=== PATIENT | male | born 1960 | race Caucasian/White ===

== ENCOUNTER 2020-05-19 14:14 | Inpatient (IN) | payer MEDICARE, OTHER ==
[~2020-05-19] VITALS: Ht 177.8 cm; Wt 68.0 kg
[2020-05-19 19:55] VITALS: BP 102/72
--- NOTE | 2020-05-19 19:55 | NUR ---
GPS RN-ADMISSION NOTES: ADMITTED A 59-YR OLD MALE, FROM [facility], ADMITTED ON 5150 FOR GD. PER HOLD, PT PRESENTS DISORIENTED WITH DEPRESSED MOOD AND RESTRICTED AFFECT. PT STATED "HE HAS NOT BEEN SLEEPING FOR 2 NIGHTS. PT. UNABLE TO TAKE HIS MEDICATION AND A RESULT ACCESS BASIC NEED DUE TO MENTAL HEALTH DISORDER. UPON FACE TO FACE ASSESSMENT, PATIENT IS A/OX1-2, DEPRESSED MOOD, DISORGANIZED, CONFUSED, COOPERATIVE. PT WAS ADVISED OF HIS HOLD. PT'S RIGHTS HANDBOOK AND A GUIDE TO PRESCRIPTION MEDICATIONS GIVEN. IN NO APPARENT DISTRESS NOTED. BELONGINGS WERE INVENTORIED AND CHECKED FOR CONTRABAND. PT. IS UNDER THE PSYCHIATRIC CARE OF DR. RODRIGUEZ ORDERS OBTAINED, AND UNDER THE MEDICAL CARE OF ROLANDA ALEXANDER. PT. REFUSED FLU VACCINE WHEN OFFERED. SKIN BODY ASSESSMENT DONE. WOUND CARE CONSULT TRIGGERED. DENIES PAIN/DISCOMFORT AT THIS TIME. SAFETY PRECAUTIONS IN PLACE. BED LOCKED AND IN LOWEST POSITION. SIDE RAILS UP X2. WILL CONTINUE TO MONITOR Q15 MINS ROUNDS FOR SAFETY AND BEHAVIOR.
[2020-05-19] MEDS ORDERED: MAGNESIUM HYDROXIDE 30 ML UDC PO PRN (20:30)
[2020-05-19] MEDS ORDERED: MAG HYDROX/AL HYDROX/SIMETH 30 ML UDC PO PRN (20:30)
[2020-05-19] MEDS ORDERED: BLOOD SUGAR DIAGNOSTIC 1 EACH STRIP IN ONE (20:30)
[2020-05-19 20:54] VITALS: BP 102/72
[2020-05-19] MEDS: ACETAMINOPHEN 325 MG TABLET PO PRN (21:11)
--- NOTE | 2020-05-19 21:11 | NUR ---
GPS-RN NOTES: LEFT FOOT PAIN PATIENT C/O LEFT FOOT PAIN ON A PAIN SCALE OF 3/10. ADMINISTERED TYLENOL 650MG PO ORDERED. WILL CONTINUE TO MONITOR.
[2020-05-19] MEDS ORDERED: SUCR1ORA15 PO (21:58)
[2020-05-19] MEDS ORDERED: DIVA-78 PO (21:58)
[2020-05-19] MEDS ORDERED: GABA-532 PO (21:58)
[2020-05-19] MEDS ORDERED: FLUT1BLS6 IH (21:58)
[2020-05-19] MEDS ORDERED: ALBUTEROL HFA INH (21:58)
[2020-05-19] MEDS ORDERED: CLOZ100T32 PO (21:58)
[2020-05-19] MEDS ORDERED: RA COL-RITE PO (21:58)
[2020-05-19] MEDS ORDERED: FLUP5TAB14 PO (21:58)
[2020-05-19] MEDS ORDERED: DICL50TA9 PO (21:58)
[2020-05-19] MEDS ORDERED: OMEP20CA15 PO (21:58)
[2020-05-19] MEDS ORDERED: DIPH50CA38 PO (21:58)
[2020-05-19] MEDS ORDERED: BENZ1TAB7 PO (21:58)
[2020-05-20] MEDS ORDERED: Medication Not On Formulary EA (Fluticasone/Umeclidin/Vilanter (Trelegy Ellipta 100-62.5 IH SCH
[2020-05-20] MEDS ORDERED: diphenhydrAMINE HCL 50 MG CAPSULE PO SCH
[2020-05-20] MEDS ORDERED: SUCRALFATE 1 G/10 ML UDC PO SCH
[2020-05-20] MEDS ORDERED: ALBUTEROL FS 2.5 MG/3 ML VIAL.NEB NEB PRN (00:30)
[2020-05-20] MEDS ORDERED: SUCR1ORA15 PO (00:36)
[2020-05-20] MEDS ORDERED: DIPH50CA38 PO (00:36)
--- NOTE | 2020-05-20 02:27 | NUR ---
GPS-RN NOTES: RECEIVED A CALL FROM [facility] REGARDING SUCRALFATE AND BANOPHEN ORDERS. ROLANDA ALEXANDER IN THE UNIT, CLARIFIED ABOVE ORDERS, NOTED AND CARRIED OUT. OUTSIDE PHARMACY MADE AWARE.
[2020-05-20] MEDS ORDERED: DIPHENHYDRAMINE HCL 12.5 MG/5 ML UDC PO PRN (02:30)
[2020-05-20] MEDS ORDERED: SUCRALFATE 1 G TABLET PO PRN (02:30)
[2020-05-20] MEDS ORDERED: OMEPRAZOLE 20 MG CAPSULE.DR PO SCH (07:30)
[2020-05-20] MEDS: GABAPENTIN 100 MG CAPSULE PO SCH (08:13)
[2020-05-20] MEDS: FLUTICASONE/VILANTEROL 1 EACH BLST.W.DEV IH SCH (08:14)
[2020-05-20] MEDS: PANTOPRAZOLE 40 MG TABLET.DR PO SCH (08:14)
[2020-05-20] MEDS: ACETAMINOPHEN 325 MG TABLET PO PRN ×2 (08:14→14:26)
[2020-05-20] MEDS ORDERED: BENZTROPINE MESYLATE (1 MG) 1 MG TABLET PO SCH (09:00)
[2020-05-20] MEDS ORDERED: DICLOFENAC SODIUM 50 MG TABLET.DR PO SCH (09:00)
--- NOTE | 2020-05-20 09:15 | NUR ---
RN NOTE PT PRESENTS DISORIENTED WITH DEPRESSED MOOD AND RESTRICTED AFFECT. UPON FACE TO FACE ASSESSMENT, PATIENT IS A/OX1-2, DEPRESSED MOOD, DISORGANIZED, CONFUSED, COOPERATIVE. PT WAS ADVISED OF HIS HOLD. NO APPARENT DISTRESS NOTED. PT. IS UNDER THE PSYCHIATRIC CARE OF DR. RODRIGUEZ, AND UNDER THE MEDICAL CARE OF ROLANDA ALEXANDER. PT. SKIN BODY ASSESSMENT DONE. PATIENT VERBALIZED PAIN 3/10 TO LEFT FOOT . SAFETY PRECAUTIONS IN PLACE. BED LOCKED AND IN LOWEST POSITION. SIDE RAILS UP X2. WILL CONTINUE TO MONITOR Q15 MINS ROUNDS FOR SAFETY AND BEHAVIOR. END RN NOTE. BN
--- NOTE | 2020-05-20 10:14 | NUR ---
WOUND CARE CONSULT: PT PRESENTS WITH SKIN LESIONS TO KNEES AND DRY ABRASION TO LEFT ELBOW, PRESENT ON ADMISSION. NO TENDERNESS, ERYTHEMA OR DRAINAGE NOTED. WILL SEE PRN.
[2020-05-20] MEDS: DICLOFENAC SODIUM 25 MG TABLET.DR PO SCH ×2 (11:34→16:50)
[2020-05-20 16:00] VITALS: BP 104/69
[2020-05-20] MEDS: BENZTROPINE MESYLATE (1 MG) 1 MG TABLET PO SCH (17:00)
[2020-05-20] MEDS ORDERED: CLOZAPINE 25 MG TABLET PO SCH (17:00)
[2020-05-20] MEDS: DIVALPROEX SODIUM 500 MG TABLET.DR PO SCH ×2 (17:00→20:31)
[2020-05-20] MEDS: CLOZAPINE 100 MG TABLET PO SCH (19:00)
[2020-05-20 20:08] VITALS: BP 114/61
[2020-05-20] MEDS: DOCUSATE SODIUM 100 MG CAPSULE PO SCH (21:31)
[2020-05-20] MEDS: FLUPHENAZINE HCL 10 MG TABLET PO SCH (21:32)
--- NOTE | 2020-05-21 07:15 | NUR ---
RN NOTES: PT. REFUSED AM LAB WORK, ENCOURAGED X 3, PER PT. TO MUCH BLOOD TAKING OUT , I DON'T WANT IT,PT. STILL REFUSED, ENDORSE TO AM NURSE FOR CONTINUITY OF CARE.
[2020-05-21] MEDS: PANTOPRAZOLE 40 MG TABLET.DR PO SCH (09:10)
[2020-05-21] MEDS: DIVALPROEX SODIUM 500 MG TABLET.DR PO SCH ×2 (09:10→21:51)
[2020-05-21] MEDS: GABAPENTIN 100 MG CAPSULE PO SCH (09:10)
[2020-05-21] MEDS: BENZTROPINE MESYLATE (1 MG) 1 MG TABLET PO SCH ×2 (09:10→16:05)
[2020-05-21] MEDS: DICLOFENAC SODIUM 25 MG TABLET.DR PO SCH ×2 (09:22→16:05)
[2020-05-21] MEDS: FLUTICASONE/VILANTEROL 1 EACH BLST.W.DEV IH SCH (09:23)
[2020-05-21] MEDS: CLOZAPINE 100 MG TABLET PO SCH ×2 (09:23→16:04)
--- NOTE | 2020-05-21 10:39 | NUR ---
RN NOTE: PATIENT ME7N1-5, DISHEVELED AND ISOLATIVE. AMBULATES MERCADO BRIEFLY AT TIMES. DENIES SI/HI, VISUAL AND AUDITORY HALLUCINATIONS. MED COMPLIANT WITH FREQUENT REQUEST FOR PAIN MEDICATION FOR LEGS. C/O DIFFICULTY SWALLOWING. OBSERVED WITH NO DIFFICULTY TAKING MEDICATIONS WHOLE, MEAL CONSUMPTION NOR THIN LIQUIDS. EVALUATED BY ST THIS AM-NO REPORT RECEIVED. PATIENT STILL WITH COMPLAINTS. PHARM TECH REACHED OUT TO THERAPY DEPT IN [place] TO SPEAK WITH ST, PHONE # RECEIVED [phone] TO GIVE HER A CALL WITH NO ANSWER. WILL CONTINUE TO MONITOR.
[2020-05-21] MEDS: LORAZEPAM 0.5 MG TABLET PO PRN ×2 (10:57→17:57)
[2020-05-21] MEDS: ACETAMINOPHEN 325 MG TABLET PO PRN (10:57)
--- NOTE | 2020-05-21 12:23 | NUR ---
[facility] Contact: CORTNEY called the [facility] and spoke to Evelyn ([phone]) who stated that the pt is paranoid, disorganized, and has had a few psychiatric admissions. She stated that there is a meeting tomorrow regarding whether or not the pt needs to be on a T-CON. CORTNEY stated that she will follow up tomorrow after the meeting.
--- NOTE | 2020-05-21 14:09 | NUR ---
RN NOTE: CHARGE SPOKE WITH ST WHO STATES EVALUATION REVEALED NO ABNORMALITY WITH SWALLOWING AND WILL NOT ORDER ANYTHING ADDITIONAL AT THIS TIME. PATIENT CONSUMED 100% LUNCH AND SNACKS WITHOUT DIFFICULTY. APPEARS TO FIXATED ON SWALLOWING WITH REQUEST FOR "SWALLOW MEDICINE." PATIENT REPORTED TO PATIENT CARRIER THAT "I ONCE WAS A MAN AT BOTTOM AND WOMAN AT TOP. WE ALL COME FROM THOSE YOU KNOW, THE ONES THAT WEAR WHITE SHEETS." REALITY REORIENTATION PROVIDED. WILL CONTINUE TO MONITOR FOR BEHAVIOR AND SAFETY.
--- NOTE | 2020-05-21 14:19 | NUR ---
RN NOTE: PATIENT REFUSED LAB DRAW. TEARFUL AND STATES "THERE'S NO NEED, IM READY TO AND BE WITH MY SON. I HAVEN'T HAD SEX IN 33YRS BUT IM [age]YRS OLD AND NEED TO SEE CORINNE PAN. IM READY." PATIENT DENIES AUDITORY, VISUAL HALLUCINATIONS AND HI. WHEN ASKED IF HE HAS A PLAN TO KILL HIMSELF, REPORTS "NO, BUT I WOULD LIKE FOR YOU TO." REALITY ORIENTATION PROVIDED WITH FREQUENT MONITORING.
--- NOTE | 2020-05-21 15:21 | NUR ---
RN NOTE: PATIENT REQUESTED BLOOD DRAW, LAB NOTIFIED AND LABS COLLECTED.
[2020-05-21 16:00] VITALS: BP 132/90
[2020-05-21 16:00] LABS: ALBUMIN 3.7 g/dL (3.4-5.0); BILIRUBIN,TOTAL 0.4 mg/dL (0.2-1.0); CALCIUM, SERUM 9.1 mg/dL (8.5-10.1); CREATININE 0.8 mg/dL (0.6-1.3); POTASSIUM 4.2 mmol/L (3.5-5.1); TOTAL PROTEIN, SERUM 6.6 g/dL (6.4-8.2)
[2020-05-21 19:51] VITALS: BP 111/77
[2020-05-21] MEDS: FLUPHENAZINE HCL 10 MG TABLET PO SCH (21:50)
[2020-05-21] MEDS: DOCUSATE SODIUM 100 MG CAPSULE PO SCH (21:50)
[2020-05-21] MEDS: TEMAZEPAM 7.5 MG CAPSULE PO PRN (21:51)
--- NOTE | 2020-05-22 06:06 | NUR ---
PT IS ALERT, CALM, COOPERATIVE, CONFUSED AND DELUSIONAL. VERBALIZED THAT THAT WE ARE NOT IN [place] . ABLE TO STATE THE CORRECT NAME OF THE PRESIDENT. RESPIRATIONS EVEN AND UNLABORED. COMPLIANT WITH TAKING MEDS AND SWALLOWED PILL WELL. NO S/S OF ASPIRATION. UNABLE TO CONFIRM OR DENY SI AND HI. NO S/O PAIN OR DISCOMFORT. SAFETY MAINTAINED AND FREE OF INJURY
[2020-05-22 08:00] VITALS: BP 110/66
[2020-05-22] MEDS: FLUTICASONE/VILANTEROL 1 EACH BLST.W.DEV IH SCH (09:00)
[2020-05-22] MEDS: GABAPENTIN 100 MG CAPSULE PO SCH (09:01)
[2020-05-22] MEDS: BENZTROPINE MESYLATE (1 MG) 1 MG TABLET PO SCH ×2 (09:02→16:28)
[2020-05-22] MEDS: DICLOFENAC SODIUM 25 MG TABLET.DR PO SCH ×2 (09:02→16:29)
[2020-05-22] MEDS: PANTOPRAZOLE 40 MG TABLET.DR PO SCH (09:02)
[2020-05-22] MEDS: DIVALPROEX SODIUM 500 MG TABLET.DR PO SCH ×2 (09:02→21:14)
[2020-05-22] MEDS: CLOZAPINE 100 MG TABLET PO SCH ×2 (09:02→16:28)
[2020-05-22] MEDS: LORAZEPAM 0.5 MG TABLET PO PRN (10:36)
--- NOTE | 2020-05-22 13:32 | NUR ---
[facility] Contact: CORTNEY called the [facility] and spoke to Evelyn ([phone]) who stated that she will be joining the meeting on Wednesday regarding this pt. She also stated that the pt will need to be placed on a 5250 for the T Con to be started. CORTNEY stated that will be happening. Evelyn was then able to provide the CORTNEY with the contact information for the pts brother.
--- NOTE | 2020-05-22 13:33 | NUR ---
Family Contact: SW called the pts brother, Chaim ([phone]), and received some collateral information regarding the pts history. Pts brother informed the SW that she should get in contact with the pts counselor, Maxx ([phone]).
--- NOTE | 2020-05-22 13:35 | NUR ---
Counselor Contact: CORTNEY called the pts counselor, Maxx ([phone]), who informed the SW that she should continue to speak to Evelyn regarding the pts discharge. Maxx stated that the pt was residing in the Independent Living with [facility] but it is no longer appropriate.
[2020-05-22 16:00] VITALS: BP 140/60
--- NOTE | 2020-05-22 16:04 | NUR ---
Initial Discharge Plan: Pt currently resides at [facility] located at [address] [place] [address]; ([phone]). Per Maxx at the facility, pt is not fit to return to this facility. SW will work with the pt and the MD regarding appropriate discharge planning. SW will form a safe and proper discharge.
[2020-05-22 20:00] VITALS: BP 114/72
[2020-05-22 20:11] VITALS: BP 114/72
[2020-05-22] MEDS: DOCUSATE SODIUM 100 MG CAPSULE PO SCH (21:14)
[2020-05-22] MEDS: FLUPHENAZINE HCL 10 MG TABLET PO SCH (21:15)
[2020-05-22] MEDS: ACETAMINOPHEN 325 MG TABLET PO PRN (23:46)
[2020-05-23 08:00] VITALS: BP 127/75
[2020-05-23] MEDS: DIVALPROEX SODIUM 500 MG TABLET.DR PO SCH ×2 (08:07→21:20)
[2020-05-23] MEDS: GABAPENTIN 100 MG CAPSULE PO SCH (08:07)
[2020-05-23] MEDS: PANTOPRAZOLE 40 MG TABLET.DR PO SCH (08:08)
[2020-05-23] MEDS: BENZTROPINE MESYLATE (1 MG) 1 MG TABLET PO SCH ×2 (08:08→16:18)
[2020-05-23] MEDS: CLOZAPINE 100 MG TABLET PO SCH ×2 (08:08→16:18)
[2020-05-23] MEDS: DICLOFENAC SODIUM 25 MG TABLET.DR PO SCH ×2 (08:09→16:18)
[2020-05-23] MEDS: FLUTICASONE/VILANTEROL 1 EACH BLST.W.DEV IH SCH (08:09)
[2020-05-23] MEDS: ACETAMINOPHEN 325 MG TABLET PO PRN ×2 (11:24→19:39)
[2020-05-23 16:00] VITALS: BP 104/73
[2020-05-23] MEDS: LORAZEPAM 0.5 MG TABLET PO PRN (19:39)
[2020-05-23 19:53] VITALS: BP 131/71
[2020-05-23] MEDS: DOCUSATE SODIUM 100 MG CAPSULE PO SCH (21:20)
[2020-05-23] MEDS: FLUPHENAZINE HCL 10 MG TABLET PO SCH (21:21)
--- NOTE | 2020-05-24 06:14 | NUR ---
ARVIND SLEPT FOR 7 HOURS, RESTING IN BED AT THIS TIME, NO APPARENT DISTRESS. SAFETY PRECAUTIONS IN PLACE, WILL CONTINUE MONITORING CLOSELY.
[2020-05-24 08:00] VITALS: BP 121/60
[2020-05-24] MEDS: CLOZAPINE 100 MG TABLET PO SCH ×2 (08:28→16:52)
[2020-05-24] MEDS: DIVALPROEX SODIUM 500 MG TABLET.DR PO SCH ×2 (08:28→21:14)
[2020-05-24] MEDS: DICLOFENAC SODIUM 25 MG TABLET.DR PO SCH ×2 (08:28→16:52)
[2020-05-24] MEDS: PANTOPRAZOLE 40 MG TABLET.DR PO SCH (08:29)
[2020-05-24] MEDS: GABAPENTIN 100 MG CAPSULE PO SCH (08:29)
[2020-05-24] MEDS: BENZTROPINE MESYLATE (1 MG) 1 MG TABLET PO SCH ×2 (08:29→16:52)
[2020-05-24] MEDS: FLUTICASONE/VILANTEROL 1 EACH BLST.W.DEV IH SCH (08:30)
--- NOTE | 2020-05-24 09:00 | NUR ---
RN NOTE- PT ALERT CONFUSED MED COMPLIANT DENIES SI HI AH VH DELUSIONAL CONFUSED .
[2020-05-24] MEDS: ACETAMINOPHEN 325 MG TABLET PO PRN (09:14)
--- NOTE | 2020-05-24 09:15 | NUR ---
RN Note: Patient complaint of foot pain 5/. Tylenol 650 mg given
[2020-05-24] MEDS: LORAZEPAM 0.5 MG TABLET PO PRN (10:47)
--- NOTE | 2020-05-24 10:47 | NUR ---
RN NOTES: PATIENT PACING, RESTLESS, IRRITABLE. ATIVAN 0.5MG GIVEN
--- NOTE | 2020-05-24 13:39 | NUR ---
SNF Referral: CORTNEY faxed a referral to [facility] with attention to Ivonne to the fax number: [phone].
--- NOTE | 2020-05-24 15:10 | NUR ---
SNF Contact: Ivonne ([phone]) from [facility] stated that the pt was accepted to their facility.
[2020-05-24 16:02] VITALS: BP 124/77
[2020-05-24 17:00] LABS: BASOPHILS % (AUTO) 0.2 % (0.0-2.0); EOSINOPHILS % (AUTO) 1.4 % (0.0-6.0); HEMATOCRIT 40 % (39-51); HEMOGLOBIN 13.3 g/dL (13.5-17.5); LYMPHOCYTES % (AUTO) 22.6 % (20.0-44.0); MEAN CORPUSCULAR HGB CONC 33 g/dl (31.0-36.0); MEAN CORPUSCULAR VOLUME 94 fL (80-96); MONOCYTES # (AUTO) 0.4 /CMM (0.1-1.30); MONOCYTES % (AUTO) 5.1 % (2.0-12.0); NEUTROPHILS # (AUTO) 6.2 /CMM (1.8-8.9); NEUTROPHILS % (AUTO) 70.7 % (43.0-81.0); PLATELET COUNT (AUTO) 230 /CMM (150-450); RED BLOOD CELL COUNT(AUTO) 4.22 MIL/uL (4.5-6.0); WHITE BLOOD COUNT (AUTO) 8.8 K/uL (4.3-11.0)
[2020-05-24 20:08] VITALS: BP 114/79
[2020-05-24 20:37] VITALS: BP 114/79
[2020-05-24] MEDS: DOCUSATE SODIUM 100 MG CAPSULE PO SCH (21:32)
[2020-05-24] MEDS: FLUPHENAZINE HCL 10 MG TABLET PO SCH (21:57)
[2020-05-25 08:00] VITALS: BP 140/68
[2020-05-25] MEDS: PANTOPRAZOLE 40 MG TABLET.DR PO SCH (08:16)
[2020-05-25] MEDS: GABAPENTIN 100 MG CAPSULE PO SCH (08:16)
[2020-05-25] MEDS: CLOZAPINE 100 MG TABLET PO SCH ×2 (08:17→16:07)
[2020-05-25] MEDS: DIVALPROEX SODIUM 500 MG TABLET.DR PO SCH ×2 (08:17→20:43)
[2020-05-25] MEDS: DICLOFENAC SODIUM 25 MG TABLET.DR PO SCH ×2 (08:17→16:07)
[2020-05-25] MEDS: BENZTROPINE MESYLATE (1 MG) 1 MG TABLET PO SCH ×2 (08:17→16:07)
[2020-05-25] MEDS: FLUTICASONE/VILANTEROL 1 EACH BLST.W.DEV IH SCH (08:20)
[2020-05-25] MEDS: ACETAMINOPHEN 325 MG TABLET PO PRN ×2 (09:27→18:48)
[2020-05-25 16:00] VITALS: BP 131/83
[2020-05-25 19:55] VITALS: BP 148/87
[2020-05-25 20:04] VITALS: BP 148/87
--- NOTE | 2020-05-25 20:27 | NUR ---
RN NOTE PATIENT SEEN BY DR. GRIFFIN AT THIS TIME. NO NEW ORDER RECEIVED.
[2020-05-25] MEDS: DOCUSATE SODIUM 100 MG CAPSULE PO SCH (21:05)
[2020-05-25] MEDS: FLUPHENAZINE HCL 10 MG TABLET PO SCH (21:20)
[2020-05-26] MEDS: ACETAMINOPHEN 325 MG TABLET PO PRN ×3 (05:48→18:36)
--- NOTE | 2020-05-26 05:51 | NUR ---
RN NOTE: PAIN PATIENT C/O LEFT FOOT PAIN & REQUESTED TO GET TYLENOL. PRN TYLENOL 650 MG PO GIVEN. WILL CONTINUE TO MONITOR.
[2020-05-26] MEDS: PANTOPRAZOLE 40 MG TABLET.DR PO SCH (07:53)
[2020-05-26 08:00] VITALS: BP 124/78
[2020-05-26] MEDS: GABAPENTIN 100 MG CAPSULE PO SCH (08:06)
[2020-05-26] MEDS: DICLOFENAC SODIUM 25 MG TABLET.DR PO SCH ×2 (08:06→16:29)
[2020-05-26] MEDS: CLOZAPINE 100 MG TABLET PO SCH ×2 (08:06→16:29)
[2020-05-26] MEDS: DIVALPROEX SODIUM 500 MG TABLET.DR PO SCH ×2 (08:06→21:35)
[2020-05-26] MEDS: BENZTROPINE MESYLATE (1 MG) 1 MG TABLET PO SCH ×2 (08:07→16:29)
[2020-05-26] MEDS: FLUTICASONE/VILANTEROL 1 EACH BLST.W.DEV IH SCH (08:09)
[2020-05-26 16:00] VITALS: BP 110/75
[2020-05-26] MEDS: LORAZEPAM 0.5 MG TABLET PO PRN (18:36)
[2020-05-26 20:03] VITALS: BP 111/81
[2020-05-26] MEDS: DOCUSATE SODIUM 100 MG CAPSULE PO SCH (21:35)
[2020-05-26] MEDS: TEMAZEPAM 7.5 MG CAPSULE PO PRN (22:01)
[2020-05-26] MEDS: FLUPHENAZINE HCL 10 MG TABLET PO SCH (22:01)
--- NOTE | 2020-05-26 22:01 | NUR ---
GPS RN NOTES: PT. REQUESTED FOR MEDICATION FOR SLEEP. RESTORIL 7.5MG/1CAP GIVEN PO ORDERED AT 22:02. WILL CONTINUE TO MONITOR.
[2020-05-27] MEDS: ACETAMINOPHEN 325 MG TABLET PO PRN ×2 (06:21→14:13)
[2020-05-27 08:00] VITALS: BP 121/76
[2020-05-27] MEDS: DIVALPROEX SODIUM 500 MG TABLET.DR PO SCH ×2 (09:15→20:32)
[2020-05-27] MEDS: PANTOPRAZOLE 40 MG TABLET.DR PO SCH (09:15)
[2020-05-27] MEDS: BENZTROPINE MESYLATE (1 MG) 1 MG TABLET PO SCH ×2 (09:15→16:16)
[2020-05-27] MEDS: DICLOFENAC SODIUM 25 MG TABLET.DR PO SCH ×2 (09:15→16:16)
[2020-05-27] MEDS: GABAPENTIN 100 MG CAPSULE PO SCH (09:15)
[2020-05-27] MEDS: FLUTICASONE/VILANTEROL 1 EACH BLST.W.DEV IH SCH (09:16)
[2020-05-27] MEDS: CLOZAPINE 100 MG TABLET PO SCH ×2 (09:16→16:16)
--- NOTE | 2020-05-27 10:13 | NUR ---
Probable Cause Hearing: Pts 5250 hold was upheld for grave disability.
[2020-05-27 16:00] VITALS: BP 98/60
[2020-05-27] MEDS: LORAZEPAM 0.5 MG TABLET PO PRN (16:01)
--- NOTE | 2020-05-27 16:35 | NUR ---
Family Contact: SW called the pts brother, Chaim ([phone]), and informed him of where the pt was accepted and informed him that the SW will call him before the pt is discharged.
--- NOTE | 2020-05-27 17:55 | NUR ---
RN NOTES PATIENT RESTING, WITH SLIGHT ANXIETY IN THE AFTERNOON, BELIEVED THAT HE COULD NOT SWALLOW, ATIVAN GIVEN, CALMED DOWN, ALL NEEDS MET. COMPLIANT WITH ALL MEDICATIONS. NO OTHER SIGNIFICANT CHANGE IN CONDITION.
[2020-05-27 20:38] VITALS: BP 103/60
--- NOTE | 2020-05-27 22:05 | NUR ---
GPS RN NOTES: PATIENT REQUESTED FOR SLEEP MEDICATION D/T INSOMNIA. RESTORIL 7.5MG/1CAP GIVEN PO PRN ORDERED AT 2224. WILL CONTINUE TO MONITOR.
[2020-05-27] MEDS: DOCUSATE SODIUM 100 MG CAPSULE PO SCH (22:21)
[2020-05-27] MEDS: FLUPHENAZINE HCL 10 MG TABLET PO SCH (22:23)
[2020-05-27] MEDS: TEMAZEPAM 7.5 MG CAPSULE PO PRN (22:24)
[2020-05-28] MEDS: ACETAMINOPHEN 325 MG TABLET PO PRN ×2 (04:21→13:57)
--- NOTE | 2020-05-28 04:22 | NUR ---
RN NOTE: LEFT FOOT PAIN PATIENT C/O LEFT FOOT PAIN 05/29 & REQUESTED TO TAKE TYLENOL. PRN TYLENOL 650 MG PO GIVEN. WILL CONTINUE TO MONITOR.
[2020-05-28 08:00] VITALS: BP 112/69
[2020-05-28] MEDS: DIVALPROEX SODIUM 500 MG TABLET.DR PO SCH ×2 (08:10→21:20)
[2020-05-28] MEDS: PANTOPRAZOLE 40 MG TABLET.DR PO SCH (08:10)
[2020-05-28] MEDS: CLOZAPINE 100 MG TABLET PO SCH ×2 (08:10→16:35)
[2020-05-28] MEDS: BENZTROPINE MESYLATE (1 MG) 1 MG TABLET PO SCH ×2 (08:10→16:35)
[2020-05-28] MEDS: GABAPENTIN 100 MG CAPSULE PO SCH (08:10)
[2020-05-28] MEDS: DICLOFENAC SODIUM 25 MG TABLET.DR PO SCH ×2 (08:10→16:35)
[2020-05-28] MEDS: FLUTICASONE/VILANTEROL 1 EACH BLST.W.DEV IH SCH (08:15)
[2020-05-28] MEDS: LORAZEPAM 0.5 MG TABLET PO PRN (13:44)
[2020-05-28 16:00] VITALS: BP 91/54
[2020-05-28] MEDS: TEMAZEPAM 7.5 MG CAPSULE PO PRN (21:20)
[2020-05-28] MEDS: DOCUSATE SODIUM 100 MG CAPSULE PO SCH (21:20)
--- NOTE | 2020-05-28 21:20 | NUR ---
GPS RN NOTE PT REQUESTING FOR SLEEPING MED, RESTORIL 7.5 MG PO GIVEN. CONTINUE TO MONITOR HIM.
[2020-05-28] MEDS: FLUPHENAZINE HCL 10 MG TABLET PO SCH (21:23)
--- NOTE | 2020-05-28 22:20 | NUR ---
GPS RN NOTE PT FALL ASLEEP, NO DISTRESS NOTED.
[2020-05-29 03:50] VITALS: BP 118/76
[2020-05-29 04:32] VITALS: BP 118/76
[2020-05-29 08:00] VITALS: BP 113/70
[2020-05-29] MEDS: DICLOFENAC SODIUM 25 MG TABLET.DR PO SCH ×2 (08:37→17:22)
[2020-05-29] MEDS: DIVALPROEX SODIUM 500 MG TABLET.DR PO SCH ×2 (08:37→20:52)
[2020-05-29] MEDS: PANTOPRAZOLE 40 MG TABLET.DR PO SCH (08:37)
[2020-05-29] MEDS: ACETAMINOPHEN 325 MG TABLET PO PRN ×2 (08:38→14:30)
[2020-05-29] MEDS: CLOZAPINE 100 MG TABLET PO SCH ×2 (08:38→17:21)
[2020-05-29] MEDS: BENZTROPINE MESYLATE (1 MG) 1 MG TABLET PO SCH ×2 (08:38→17:22)
--- NOTE | 2020-05-29 08:38 | NUR ---
given tylenol 650 mg po for lt. foot pain.
[2020-05-29] MEDS: FLUTICASONE/VILANTEROL 1 EACH BLST.W.DEV IH SCH (08:41)
[2020-05-29] MEDS: GABAPENTIN 100 MG CAPSULE PO SCH (08:43)
[2020-05-29] MEDS: LORAZEPAM 0.5 MG TABLET PO PRN (11:00)
--- NOTE | 2020-05-29 11:15 | NUR ---
given ativan for nervousness.
--- NOTE | 2020-05-29 14:34 | NUR ---
GIVEN TYLENOL 650 MG PO FOR LT. FOOT PAIN.
[2020-05-29 16:00] VITALS: BP 109/65
[2020-05-29 20:00] VITALS: BP 100/74
[2020-05-29] MEDS: DOCUSATE SODIUM 100 MG CAPSULE PO SCH (21:07)
[2020-05-29] MEDS: FLUPHENAZINE HCL 10 MG TABLET PO SCH (21:07)
[2020-05-30] MEDS: ACETAMINOPHEN 325 MG TABLET PO PRN ×2 (06:20→20:02)
--- NOTE | 2020-05-30 06:21 | NUR ---
GPS-RN NOTES: LEFT FOOT PAIN PATIENT C/O LEFT FOOT PAIN ON A PAIN SCALE OF 3/10. ADMINISTERED TYLENOL 650MG PO ORDERED. WILL CONTINUE TO REASSESS.
[2020-05-30 08:00] VITALS: BP 108/73
[2020-05-30] MEDS: CLOZAPINE 100 MG TABLET PO SCH ×2 (08:16→16:28)
[2020-05-30] MEDS: PANTOPRAZOLE 40 MG TABLET.DR PO SCH (08:16)
[2020-05-30] MEDS: DIVALPROEX SODIUM 500 MG TABLET.DR PO SCH ×2 (08:16→21:17)
[2020-05-30] MEDS: BENZTROPINE MESYLATE (1 MG) 1 MG TABLET PO SCH ×2 (08:16→16:28)
[2020-05-30] MEDS: DICLOFENAC SODIUM 25 MG TABLET.DR PO SCH ×2 (08:17→16:28)
[2020-05-30] MEDS: FLUTICASONE/VILANTEROL 1 EACH BLST.W.DEV IH SCH (08:17)
[2020-05-30] MEDS: GABAPENTIN 100 MG CAPSULE PO SCH (08:17)
[2020-05-30 16:00] VITALS: BP 118/71
[2020-05-30] MEDS: LORAZEPAM 0.5 MG TABLET PO PRN (20:09)
[2020-05-30 20:21] VITALS: BP 145/64
[2020-05-30] MEDS: FLUPHENAZINE HCL 10 MG TABLET PO SCH (21:17)
[2020-05-30] MEDS: TEMAZEPAM 7.5 MG CAPSULE PO PRN (21:17)
[2020-05-30] MEDS: DOCUSATE SODIUM 100 MG CAPSULE PO SCH (21:17)
[2020-05-31] MEDS: PANTOPRAZOLE 40 MG TABLET.DR PO SCH (07:49)
[2020-05-31] MEDS: CLOZAPINE 100 MG TABLET PO SCH ×2 (08:15→16:01)
[2020-05-31] MEDS: BENZTROPINE MESYLATE (1 MG) 1 MG TABLET PO SCH ×2 (08:15→16:01)
[2020-05-31] MEDS: GABAPENTIN 100 MG CAPSULE PO SCH (08:15)
[2020-05-31] MEDS: DIVALPROEX SODIUM 500 MG TABLET.DR PO SCH ×2 (08:15→21:20)
[2020-05-31] MEDS: FLUTICASONE/VILANTEROL 1 EACH BLST.W.DEV IH SCH (08:16)
[2020-05-31] MEDS: DICLOFENAC SODIUM 25 MG TABLET.DR PO SCH ×2 (08:16→16:01)
[2020-05-31 08:44] VITALS: BP 119/82
--- NOTE | 2020-05-31 09:00 | NUR ---
RN NOTE- PT CONFUSED DELUSIONAL FOCUS ON BANKING AND MONEY FROM SOCIAL SECURITY, DENIES SI HI AH VH MED COMPLIANT DIRECTABLE CALM
[2020-05-31] MEDS: ACETAMINOPHEN 325 MG TABLET PO PRN ×2 (10:06→19:27)
--- NOTE | 2020-05-31 10:06 | NUR ---
PT C/O FOOT PAIN . TYLENOL 650 MG GIVEN
[2020-05-31 12:33] LABS: BASOPHILS % (AUTO) 0.2 % (0.0-2.0); EOSINOPHILS % (AUTO) 0.9 % (0.0-6.0); HEMATOCRIT 39 % (39-51); HEMOGLOBIN 13.1 g/dL (13.5-17.5); LYMPHOCYTES % (AUTO) 15.2 % (20.0-44.0); MEAN CORPUSCULAR HGB CONC 34 g/dl (31.0-36.0); MEAN CORPUSCULAR VOLUME 94 fL (80-96); MONOCYTES # (AUTO) 0.4 /CMM (0.1-1.30); MONOCYTES % (AUTO) 5.3 % (2.0-12.0); NEUTROPHILS # (AUTO) 5.4 /CMM (1.8-8.9); NEUTROPHILS % (AUTO) 78.4 % (43.0-81.0); PLATELET COUNT (AUTO) 207 /CMM (150-450); RED BLOOD CELL COUNT(AUTO) 4.18 MIL/uL (4.5-6.0); WHITE BLOOD COUNT (AUTO) 6.8 K/uL (4.3-11.0)
--- NOTE | 2020-05-31 12:34 | NUR ---
SNF Contact: CORTNEY contacted Ivonne ([phone]), head start coordinator from [facility], and informed her that the pt is going to be discharged to their facility on June 03.
--- NOTE | 2020-05-31 12:39 | NUR ---
Family Contact: CORTNEY called the pts brother, Chaim ([phone]), and informed him that the pt will be discharged to [facility] on June 03.
[2020-05-31] MEDS: LORAZEPAM 0.5 MG TABLET PO PRN (15:25)
--- NOTE | 2020-05-31 15:26 | NUR ---
RN NOTE- ANXIETY. PACING RESTLESS./ ATIVAN 0.5 MG GIVEN
[2020-05-31 16:08] VITALS: BP 129/90
--- NOTE | 2020-05-31 19:28 | NUR ---
RN NOTE: LEFT FOOT PAIN PATIENT C/O LEFT FOOT PAIN 05/29 & REQUESTED TO GET TYLENOL. PRN TYLENOL 650 MG PO GIVEN. WILL CONTINUE TO MONITOR.
[2020-05-31 19:57] VITALS: BP 112/66
[2020-05-31 20:05] VITALS: BP 112/66
[2020-05-31] MEDS: DOCUSATE SODIUM 100 MG CAPSULE PO SCH (21:24)
[2020-05-31] MEDS: FLUPHENAZINE HCL 10 MG TABLET PO SCH (21:38)
[2020-06-01 08:30] VITALS: BP 111/78
[2020-06-01] MEDS: GABAPENTIN 100 MG CAPSULE PO SCH (08:40)
[2020-06-01] MEDS: PANTOPRAZOLE 40 MG TABLET.DR PO SCH (08:40)
[2020-06-01] MEDS: DICLOFENAC SODIUM 25 MG TABLET.DR PO SCH ×2 (08:40→16:12)
[2020-06-01] MEDS: DIVALPROEX SODIUM 500 MG TABLET.DR PO SCH ×2 (08:40→21:15)
[2020-06-01] MEDS: CLOZAPINE 100 MG TABLET PO SCH ×2 (08:40→16:11)
[2020-06-01] MEDS: BENZTROPINE MESYLATE (1 MG) 1 MG TABLET PO SCH ×2 (08:41→16:11)
[2020-06-01] MEDS: FLUTICASONE/VILANTEROL 1 EACH BLST.W.DEV IH SCH (08:43)
[2020-06-01] MEDS: ACETAMINOPHEN 325 MG TABLET PO PRN (10:55)
[2020-06-01 16:00] VITALS: BP 117/73
[2020-06-01] MEDS: LORAZEPAM 0.5 MG TABLET PO PRN (16:12)
[2020-06-01 19:57] VITALS: BP 112/67
[2020-06-01 20:00] VITALS: BP 112/67
[2020-06-01] MEDS: FLUPHENAZINE HCL 10 MG TABLET PO SCH (21:39)
[2020-06-01] MEDS: DOCUSATE SODIUM 100 MG CAPSULE PO SCH (21:39)
[2020-06-02 08:00] VITALS: BP 104/71
[2020-06-02] MEDS: DICLOFENAC SODIUM 25 MG TABLET.DR PO SCH ×2 (08:24→16:09)
[2020-06-02] MEDS: PANTOPRAZOLE 40 MG TABLET.DR PO SCH (08:25)
[2020-06-02] MEDS: DIVALPROEX SODIUM 500 MG TABLET.DR PO SCH ×2 (08:25→20:10)
[2020-06-02] MEDS: BENZTROPINE MESYLATE (1 MG) 1 MG TABLET PO SCH ×2 (08:25→16:09)
[2020-06-02] MEDS: CLOZAPINE 100 MG TABLET PO SCH ×2 (08:25→16:08)
[2020-06-02] MEDS: GABAPENTIN 100 MG CAPSULE PO SCH (08:25)
[2020-06-02] MEDS: FLUTICASONE/VILANTEROL 1 EACH BLST.W.DEV IH SCH (08:26)
--- NOTE | 2020-06-02 10:38 | NUR ---
GERALDINE NOTE PATIENT ASKED FOR PAIN MED. 05/29 PAIN ON HIS L FOOT. TYLENOL PRN 650 MG PO GIVEN. WILL CONTINUE TO MONITOR THROUGHOUT THE SHIFT. Addendum: 06/02/20 at 1135 by MEETA PEREYRA RN TIME GIVEN [id number]*
[2020-06-02] MEDS: ACETAMINOPHEN 325 MG TABLET PO PRN ×2 (10:58→17:46)
[2020-06-02 16:00] VITALS: BP 100/58
--- NOTE | 2020-06-02 20:00 | NUR ---
RN PM NOTE: RECEIVED PATIENT IN BED. A/OX2, FORGETFUL, NEEDS REDIRECTIONS. NO ACUTE DISTRESS NOTED. PATIENT MAKES NEEDS KNOWN, COOPERATIVE, CONFUSED AT TIMES. VERBALIZATION OF FEELINGS ENCOURAGED. DENIES SI/HI/AVH AT THIS TIME. SAFETY PRECAUTIONS IN PLACE. WILL CONTINUT TO MONITOR Q15MIN ROUNDS FOR SAFETY AND BEHAVIOR.
[2020-06-02] MEDS: LORAZEPAM 0.5 MG TABLET PO PRN (20:10)
[2020-06-02] MEDS: FLUPHENAZINE HCL 10 MG TABLET PO SCH (20:11)
[2020-06-02] MEDS: DOCUSATE SODIUM 100 MG CAPSULE PO SCH (20:11)
[2020-06-02] MEDS: TEMAZEPAM 7.5 MG CAPSULE PO PRN (21:03)
[2020-06-02 21:22] VITALS: BP 132/90
[2020-06-03] MEDS: ACETAMINOPHEN 325 MG TABLET PO PRN ×2 (04:13→10:16)
[2020-06-03 08:00] VITALS: BP 106/73
[2020-06-03] MEDS: FLUTICASONE/VILANTEROL 1 EACH BLST.W.DEV IH SCH (08:22)
[2020-06-03] MEDS: DICLOFENAC SODIUM 25 MG TABLET.DR PO SCH (08:23)
[2020-06-03] MEDS: DIVALPROEX SODIUM 500 MG TABLET.DR PO SCH (08:23)
[2020-06-03] MEDS: GABAPENTIN 100 MG CAPSULE PO SCH (08:23)
[2020-06-03] MEDS: CLOZAPINE 100 MG TABLET PO SCH (08:23)
[2020-06-03] MEDS: PANTOPRAZOLE 40 MG TABLET.DR PO SCH (08:24)
[2020-06-03] MEDS: BENZTROPINE MESYLATE (1 MG) 1 MG TABLET PO SCH (08:24)
--- NOTE | 2020-06-03 09:07 | NUR ---
Social Service discharge note: Pt will be discharged to [facility] located at [address] [place] [address] . Pt will be transported via [facility] at 11AM. Pts brother, Chaim ([phone]), has been notified of the pts discharge. Upon discharge, the pt appears to be in a euthymic mood and presents with a congruent affect. Pt appears to be alert and oriented x4 (time, place, self and situation). Pt denies both suicidal and homicidal ideation as well as auditory and visual hallucinations. Pt appears to be ambulatory with an unsteady gait. Pt appears to be well groomed and appropriately dressed. Pt will continue to be under the care of psychiatrist, Dr. Mazariegos, located at [address] [facility] [address] [place] [id number]; . Pt will be under the care of barker operator, Dr. Patel, located at [address] [place] [address]; . The choice of vendor form and multidisciplinary exit care form were done, printed, signed, and given to the patient.
--- NOTE | 2020-06-03 09:37 | NUR ---
gps hyperion administrator: md visit seen by rigoberto bartlett) and lissette for discharge to snf today. med recon reconciled. pt aware of eta at 1300.
--- NOTE | 2020-06-03 10:00 | NUR ---
gps hip hop performers: notes order received from psychiatrist to discharge pt to snf by cn. order acknowledged.
[2020-06-03] MEDS: LORAZEPAM 0.5 MG TABLET PO PRN (10:46)
--- NOTE | 2020-06-03 11:00 | NUR ---
gps jacquard loom card changer: conor rangel (rn) from snf notified and report given over the phone for continuity of care. eta at 1300.
--- NOTE | 2020-06-03 11:20 | NUR ---
gps train announcer: notes discharge instructions given to pt and verbalized understanding. pt stable for discharge. brother aware per s.w. re: d'c to snf. will continue to monitor.
--- NOTE | 2020-06-03 13:10 | NUR ---
gps preschool program director: notes [facility] here and report given to one of the crew. all valuables returned to pt. pt stable for discharge. hold has been discontinued. pt denied si/hi and denied auditory/visual hallucinations. needs attended.
--- NOTE | 2020-06-03 13:26 | NUR ---
gps presser and shaper knitted goods: discharged discharged to snf via ambulance in stable condition with all valuables and d'c papers accompanied by 2 emt.
== END 2020-06-03 13:20 | DRG 885 ==
LOC: GPS 19:39
PROVIDERS: ADMIT Psychiatry & Neurology Psychiatry; ATTEND Registered Nurse
DX: F25.9 Schizoaffective disorder, unspecified (principal); R45.851 Suicidal ideations; Z91.14 Patient's other noncompliance with medication regimen; E11.40 Type 2 diabetes mellitus with diabetic neuropathy, unspecified; Z91.5 Personal history of self-harm; Z79.51 Long term (current) use of inhaled steroids; Z79.899 Other long term (current) drug therapy; X78.1XXD Intentional self-harm by knife, subsequent encounter; F31.9 Bipolar disorder, unspecified; Z73.6 Limitation of activities due to disability; F29 Unspecified psychosis not due to a substance or known physiological condition; R27.8 Other lack of coordination; Z91.81 History of falling; F41.9 Anxiety disorder, unspecified; R53.1 Weakness; F22 Delusional disorders
CPT/HCPCS: 36415; 80053-TC; 80061-TC; 82962-TC; 85025-TC; 87081-TC; 92526; 92611-TC

== ENCOUNTER 2023-08-11 16:41 | Inpatient (IN) | payer MEDICARE, OTHER ==
[~2023-08-11] VITALS: Ht 167.6 cm; Wt 76.7 kg
[~2023-08-11 16:41] MED LIST: ALBUTEROL HFA INH; DICL50TA9 PO; DIPH50CA38 PO; FLUP5TAB14 PO; FLUT1BLS6 IH; GABA-532 PO; OMEP20CA15 PO; RA COL-RITE PO; SUCR1ORA15 PO
[2023-08-11] MEDS ORDERED: MAGN400O6 PO (18:08)
[2023-08-11] MEDS ORDERED: FLUT1BLS IH (18:08)
[2023-08-11] MEDS ORDERED: MULT-213 PO (18:08)
[2023-08-11] MEDS ORDERED: ZOLP10TA2 PO (18:08)
[2023-08-11] MEDS ORDERED: LITH300C2 PO (18:08)
[2023-08-11] MEDS ORDERED: HALO5TAB8 PO (18:08)
[2023-08-11] MEDS ORDERED: MAG-151 PO (18:08)
[2023-08-11] MEDS ORDERED: DIPH-873 PO (18:08)
[2023-08-11] MEDS ORDERED: ACET325T53 PO (18:08)
[2023-08-11] MEDS ORDERED: LORA-259 PO (18:08)
[2023-08-11] MEDS ORDERED: PANT40TA49 PO (18:08)
[2023-08-11] MEDS ORDERED: ASCO-352 PO (18:08)
[2023-08-11] MEDS ORDERED: BENZ1TAB7 PO (18:08)
[2023-08-11] MEDS ORDERED: TAMS-12 PO (18:08)
[2023-08-11] MEDS ORDERED: DIVA500T2 PO (18:08)
[2023-08-11 18:29] LABS: BASOPHILS % (AUTO) 0.6 % (0.0-2.0); EOSINOPHILS # (AUTO) 0.1 K/uL (0.0-0.7); EOSINOPHILS % (AUTO) 1.6 % (0.0-6.0); HEMATOCRIT 37 % (39-51); HEMOGLOBIN 12.1 g/dL (13.5-17.5); LYMPHOCYTES # (AUTO) 2.1 K/uL (0.8-4.8); MEAN CORPUSCULAR HEMOGLOBIN 32 PG (26.0-33.0); MEAN CORPUSCULAR HGB CONC 33 g/dl (31.0-36.0); MEAN CORPUSCULAR VOLUME 98 fL (80-96); MONOCYTES # (AUTO) 0.5 K/uL (0.1-1.30); NEUTROPHILS # (AUTO) 5.1 K/uL (1.8-8.9); NEUTROPHILS % (AUTO) 64.8 % (43.0-81.0); PLATELET COUNT (AUTO) 205 K/uL (150-450); RED BLOOD CELL COUNT(AUTO) 3.75 MIL/uL (4.5-6.0); WHITE BLOOD COUNT (AUTO) 7.9 K/uL (4.3-11.0)
[2023-08-11 18:40] LABS: CARBON DIOXIDE 32 mmol/L (21-32); CHLORIDE 110 mmol/L (98-107); CREATININE 0.9 mg/dL (0.6-1.3); GLUCOSE 90 mg/dL (74-106); SODIUM SERUM 145 mmol/L (136-145); UREA NITROGEN, BLOOD 14 mg/dL (7-18)
[2023-08-11 18:47] LABS: ALANINE AMINOTRANSFERASE 32 U/L (12-78); ALCOHOL, BLOOD < 3 mg/dL (0-10); ALKALINE PHOSPHATASE 102 U/L (46-116); ASPARTATE AMINOTRANSFERASE 22 U/L (15-37); BILIRUBIN,DIRECT 0.1 mg/dL (0.0-0.2); BILIRUBIN,TOTAL 0.5 mg/dL (0.2-1.0); TOTAL PROTEIN, SERUM 6.8 g/dL (6.4-8.2)
[2023-08-11 18:48] LABS: SALICYLATE 0.7 mg/dL (2.8-20.0)
[2023-08-11 18:49] LABS: ACETAMINOPHEN 0 ug/ml (10-30)
[2023-08-11 18:55] LABS: APPEARANCE,URINE Clear (CLEAR); BILIRUBIN,URINE Negative (NEGATIVE); BLOOD, URINE Negative Ery/uL (NEGATIVE); COLOR,URINE YELLOW (YELLOW); KETONES,URINE Negative (NEGATIVE); LEUKOCYTE ESTERASE ,URINE Negative (NEGATIVE); NITRITE, URINE Negative (NEGATIVE); PROTEIN,URINE Negative (NEGATIVE); UGLUCOSE Negative (NEGATIVE); UROBILINOGEN,URINE 0.2 EU/dL (0.2)
[2023-08-11 19:11] LABS: AMPHETAMINE, URINE NEGATIVE (NEGATIVE); BARBITURATE, URINE NEGATIVE (NEGATIVE); BENZODIAZEPINE, URINE NEGATIVE (NEGATIVE); CANNABINOID, URINE NEGATIVE (NEGATIVE); COCCAINE, URINE NEGATIVE (NEGATIVE); OPIATE, URINE NEGATIVE (NEGATIVE); PHENCYCLIDINE SCREEN,URINE NEGATIVE (NEGATIVE)
[2023-08-11] MEDS ORDERED: ACETAMINOPHEN 325 MG TABLET PO PRN (20:30)
[2023-08-11] MEDS ORDERED: Medication Not On Formulary EA (Mag Hydrox/Aluminum Hyd/Simeth (Geri-Lanta Liquid) 30 ML PO PRN (20:30)
[2023-08-11] MEDS ORDERED: MAGNESIUM HYDROXIDE 30 ML UDC PO PRN ×2 (20:30→23:00)
[2023-08-11] MEDS ORDERED: OLANZAPINE ZYDIS 5 MG TAB.RAPDIS ONE (21:21)
[2023-08-11] MEDS: OLANZAPINE ZYDIS 5 MG TAB.RAPDIS PO ONE (21:21)
[2023-08-11 22:40] VITALS: BP 128/80; TEMP 98; O2SAT 97
[2023-08-11] MEDS ORDERED: MAG HYDROX/AL HYDROX/SIMETH 30 ML UDC PO PRN (23:00)
[2023-08-11] MEDS ORDERED: clonazePAM 0.5 MG TABLET PO PRN (23:00)
[2023-08-11] MEDS: BLOOD SUGAR DIAGNOSTIC 1 EACH STRIP IN ONE (23:01)
[2023-08-11] MEDS: TAMSULOSIN 0.4 MG CAP.SR.24H PO SCH (23:05)
[2023-08-12 07:03] VITALS: BP 128/80; TEMP 98; O2SAT 97
[2023-08-12] MEDS: PANTOPRAZOLE 40 MG TABLET.DR PO SCH (07:30)
[2023-08-12 07:33] LABS: CREATININE 0.8 mg/dL (0.6-1.3)
[2023-08-12] MEDS: diphenhydrAMINE HCL 50 MG/ML VIAL IM ONE (07:59)
[2023-08-12] MEDS: LORAZEPAM INJ 2 MG/ML VIAL IM ONE (07:59)
[2023-08-12] MEDS: HALOPERIDOL LACTATE INJ 5 MG/ML VIAL IM ONE (07:59)
[2023-08-12 08:34] LABS: ALBUMIN 3.3 g/dL (3.4-5.0); BILIRUBIN,TOTAL 0.8 mg/dL (0.2-1.0); CHOLESTEROL 120 mg/dL (<200); CREATININE 0.7 mg/dL (0.6-1.3); HDL CHOLESTEROL 36 mg/dL (40-60); LDL 66 mg/dL (0-99); POTASSIUM 4.3 mmol/L (3.5-5.1); TOTAL PROTEIN, SERUM 6.1 g/dL (6.4-8.2); TRIGLYCERIDES 138 mg/dL (30-150)
[2023-08-12] MEDS: FLUTICASONE/VILANTEROL 1 EACH BLST.W.DEV IH SCH (08:40)
[2023-08-12] MEDS: diphenhydrAMINE HCL 25 MG CAPSULE PO SCH (08:40)
[2023-08-12] MEDS: MULTIVIT W/MINERALS 1 TAB TABLET PO SCH (08:41)
[2023-08-12] MEDS: ASCORBIC ACID 500 MG TABLET PO SCH (08:41)
[2023-08-12] MEDS: HALOPERIDOL 5 MG TABLET PO SCH (09:00)
[2023-08-12] MEDS: BENZTROPINE MESYLATE (1 MG) 1 MG TABLET PO SCH (09:00)
[2023-08-12] MEDS: LITHIUM CARBONATE 150 MG CAPSULE PO SCH (09:00)
[2023-08-12] MEDS: DIVALPROEX SODIUM 500 MG TABLET.DR PO SCH (09:00)
[2023-08-12 16:00] VITALS: BP 111/80; TEMP 98.2; O2SAT 98
[2023-08-12 20:00] VITALS: BP 106/73; TEMP 98.4; O2SAT 100
[2023-08-13 08:00] VITALS: BP 121/101; TEMP 98; O2SAT 97
[2023-08-13 16:00] VITALS: BP 107/92; TEMP 98; O2SAT 95
[2023-08-13 20:00] VITALS: BP 115/90; TEMP 98.2; O2SAT 95
[2023-08-14 09:23] VITALS: BP 114/94; TEMP 96.9; O2SAT 75
[2023-08-14 16:56] VITALS: BP 101/67; TEMP 97.6; O2SAT 95
[2023-08-14 20:00] VITALS: BP 114/81; TEMP 97.8; O2SAT 98
[2023-08-15 08:00] VITALS: BP 95/69; TEMP 97.5; O2SAT 98
[2023-08-15 16:00] VITALS: BP 95/72; TEMP 98.8; O2SAT 94
[2023-08-15 20:45] VITALS: BP 136/89; TEMP 97.5; O2SAT 96
[2023-08-15] MEDS: ACETAMINOPHEN 325 MG TABLET PO PRN (22:28)
[2023-08-16 08:00] VITALS: BP 102/70; TEMP 98.7; O2SAT 96
[2023-08-16] MEDS: HALOPERIDOL 5 MG TABLET PO SCH ×2 (15:30→21:09)
[2023-08-16 16:00] VITALS: BP 100/79; TEMP 97.9; O2SAT 98
[2023-08-16 20:44] VITALS: BP 100/70; TEMP 98.1; O2SAT 96
[2023-08-17 08:00] VITALS: BP 93/63; TEMP 97.7; O2SAT 96
[2023-08-17 16:07] VITALS: BP 110/82; TEMP 97.8; O2SAT 98
[2023-08-17 20:45] VITALS: BP 116/77; TEMP 98.6; O2SAT 97
[2023-08-18 08:00] VITALS: BP 112/61; TEMP 97.7; O2SAT 97
[2023-08-18] MEDS: LITHIUM CARBONATE 150 MG CAPSULE PO SCH ×2 (08:53→21:14)
[2023-08-18 16:00] VITALS: BP 115/72; TEMP 98.1; O2SAT 97
[2023-08-18 21:10] VITALS: BP 149/64; O2SAT 97
[2023-08-19 08:00] VITALS: BP 106/65; TEMP 98; O2SAT 96
[2023-08-19 16:00] VITALS: BP 109/84; TEMP 97.7; O2SAT 97
[2023-08-19 20:00] VITALS: BP 111/70; TEMP 97.9; O2SAT 100
[2023-08-20 08:00] VITALS: BP 100/62; TEMP 98.1; O2SAT 99
[2023-08-20 16:00] VITALS: BP 105/78; TEMP 97.7; O2SAT 98
[2023-08-20 20:00] VITALS: BP 105/78; TEMP 98.1; O2SAT 98
[2023-08-21 08:00] VITALS: BP 117/76; TEMP 98; O2SAT 95
[2023-08-21 16:00] VITALS: BP 101/73; TEMP 97.9; O2SAT 95
[2023-08-21 20:00] VITALS: BP 108/72; TEMP 98.2; O2SAT 98
[2023-08-22 08:00] VITALS: BP 154/99; TEMP 98.7; O2SAT 99
[2023-08-22 16:00] VITALS: BP 105/76; TEMP 97.5; O2SAT 97
[2023-08-22 20:20] VITALS: BP 100/80; TEMP 97.9; O2SAT 98
[2023-08-23 08:00] VITALS: BP 102/75; TEMP 98.6; O2SAT 97
[2023-08-23 16:00] VITALS: BP 101/86; TEMP 98.1; O2SAT 97
[2023-08-23 20:27] VITALS: BP 119/84; TEMP 98.1; O2SAT 97
[2023-08-24 08:00] VITALS: BP 125/90; TEMP 97.8; O2SAT 96
[2023-08-24 16:04] VITALS: BP 99/73; TEMP 97.8; O2SAT 94
[2023-08-24 20:16] VITALS: BP 111/91; TEMP 97.7; O2SAT 97
[2023-08-25] MEDS: TEMAZEPAM 7.5 MG CAPSULE PO PRN (02:12)
[2023-08-25 08:00] VITALS: BP 115/68; TEMP 98.1; O2SAT 98
== END 2023-08-25 13:56 | DRG 885 ==
LOC: ER 16:45 → GPS 22:19
PROVIDERS: ADMIT Psychiatry & Neurology Psychiatry
DX: F25.0 Schizoaffective disorder, bipolar type (principal); F29 Unspecified psychosis not due to a substance or known physiological condition; F41.9 Anxiety disorder, unspecified; K59.00 Constipation, unspecified; G47.00 Insomnia, unspecified; D63.8 Anemia in other chronic diseases classified elsewhere; K21.9 Gastro-esophageal reflux disease without esophagitis; Z20.822 Contact with and (suspected) exposure to COVID-19; Z73.6 Limitation of activities due to disability; R10.13 Epigastric pain; J45.909 Unspecified asthma, uncomplicated
CPT/HCPCS: 36415; 80048-TC; 80053-TC; 80061-TC; 80076-TC; 80164-TC; 80178-TC; 82565-TC; 82962-TC; 85025-TC; 87081-TC; 97112-TC; 97116-TC; 97530-TC; G0480; J1200; J1630; J2060; Q0163

== ENCOUNTER 2024-09-13 16:25 | Inpatient (IN) | payer MEDICARE, OTHER ==
[~2024-09-13] VITALS: Ht 167.6 cm; Wt 74.8 kg
[~2024-09-13 16:25] MED LIST changes: +ACET325T53 PO; -ALBUTEROL HFA INH; +ASCO-352 PO; +BENZ1TAB7 PO; -DICL50TA9 PO; +DIPH-873 PO; -DIPH50CA38 PO; +DIVA500T2 PO; -FLUP5TAB14 PO; +FLUT1BLS IH; -FLUT1BLS6 IH; -GABA-532 PO; +HALO5TAB8 PO; +LITH300C2 PO; +LORA-259 PO; +MAG-151 PO; +MAGN400O6 PO; +MULT-213 PO; -OMEP20CA15 PO; +PANT40TA49 PO; -RA COL-RITE PO; -SUCR1ORA15 PO; +TAMS-12 PO; +ZOLP10TA2 PO
[2024-09-13 17:46] LABS: PLATELET COUNT (AUTO) 192 K/uL (150-450); RED BLOOD CELL COUNT(AUTO) 4.24 MIL/uL (4.5-6.0); RED CELL DISTRIBUTION WIDTH 13.8 % (11.5-15.0); WHITE BLOOD COUNT (AUTO) 5.7 K/uL (4.3-11.0)
[2024-09-13 17:53] LABS: CALCIUM, SERUM 8.8 mg/dL (8.5-10.1); CREATININE 0.6 mg/dL (0.6-1.3); SODIUM SERUM 137 mmol/L (136-145); UREA NITROGEN, BLOOD 11 mg/dL (7-18)
[2024-09-13 18:00] LABS: ASPARTATE AMINOTRANSFERASE 16 U/L (15-37); TOTAL PROTEIN, SERUM 7.0 g/dL (6.4-8.2)
[2024-09-13 18:01] LABS: ALCOHOL, BLOOD < 3 mg/dL (0-10)
[2024-09-13 19:12] LABS: APPEARANCE,URINE CLEAR (CLEAR); BLOOD, URINE NEGATIVE Ery/uL (NEGATIVE); LEUKOCYTE ESTERASE ,URINE NEGATIVE (NEGATIVE); NITRITE, URINE NEGATIVE (NEGATIVE); UGLUCOSE NEGATIVE (NEGATIVE)
[2024-09-13 19:28] LABS: ADD URINE CULTURE NO; SQUAMOUS EPITHELIAL CELL,UR Few /HPF (None Seen)
[2024-09-13 19:30] LABS: AMPHETAMINE, URINE NEGATIVE (NEGATIVE); BARBITURATE, URINE NEGATIVE (NEGATIVE); BENZODIAZEPINE, URINE NEGATIVE (NEGATIVE); CANNABINOID, URINE NEGATIVE (NEGATIVE); COCCAINE, URINE NEGATIVE (NEGATIVE); OPIATE, URINE NEGATIVE (NEGATIVE)
[2024-09-13] MEDS ORDERED: OLANZAPINE 5 MG TABLET ONE (19:54)
[2024-09-13] MEDS: OLANZAPINE ZYDIS 5 MG TAB.RAPDIS PO ONE (19:56)
[2024-09-14] MEDS ORDERED: PARO10TA86 PO (00:50)
[2024-09-14] MEDS ORDERED: DOCU-141 PO (00:50)
[2024-09-14] MEDS ORDERED: NA P133E RC (00:50)
[2024-09-14] MEDS ORDERED: OLAN15TA3 PO (00:50)
[2024-09-14] MEDS ORDERED: DIVA500T4 PO (00:50)
[2024-09-14] MEDS ORDERED: BISA10SU61 RC (00:50)
[2024-09-14] MEDS ORDERED: SENN-228 PO (00:50)
[2024-09-14] MEDS ORDERED: MAGNESIUM HYDROXIDE 30 ML UDC PO PRN ×2 (02:00→11:00)
[2024-09-14] MEDS ORDERED: MAG HYDROX/AL HYDROX/SIMETH 30 ML UDC PO PRN (02:00)
[2024-09-14] MEDS: BLOOD SUGAR DIAGNOSTIC 1 EACH STRIP IN ONE (02:25)
[2024-09-14 02:41] VITALS: BP 121/90; TEMP 97.9; O2SAT 95
[2024-09-14 08:00] VITALS: BP 107/97; TEMP 97.7; O2SAT 100
[2024-09-14] MEDS ORDERED: POLY17PO4 PO (08:04)
[2024-09-14] MEDS ORDERED: ACETAMINOPHEN 325 MG TABLET PO PRN (11:00)
[2024-09-14] MEDS ORDERED: POLYETHYLENE GLYCOL 3350 17 GM POWD.PACK PO PRN (11:00)
[2024-09-14] MEDS ORDERED: SENNOSIDES/DOCUSATE SODIUM 1 UDTAB TABLET PO PRN (11:00)
[2024-09-14] MEDS ORDERED: NA PHOS,M-B/NA PHOS,DI-BA 1 EA ENEMA RC PRN (11:00)
[2024-09-14] MEDS ORDERED: SENNOSIDES/DOCUSATE SODIUM 1 TAB TABLET PO PRN (11:30)
[2024-09-14 16:00] VITALS: BP 119/90; TEMP 97.6; O2SAT 100
[2024-09-14] MEDS: BENZTROPINE MESYLATE (1 MG) 1 MG TABLET PO SCH (16:25)
[2024-09-14 20:00] VITALS: BP 98/69; TEMP 97.6; O2SAT 98
[2024-09-14] MEDS: DIVALPROEX SODIUM 500 MG TABLET.DR PO SCH (21:20)
[2024-09-14] MEDS: TEMAZEPAM 15 MG CAPSULE PO PRN (21:21)
[2024-09-15 07:44] LABS: ASPARTATE AMINOTRANSFERASE 19.0 U/L (15-37); CALCIUM, SERUM 8.8 mg/dL (8.5-10.1); CREATININE 0.7 mg/dL (0.6-1.3); SODIUM SERUM 139.0 mmol/L (136-145); TOTAL PROTEIN, SERUM 7.1 g/dL (6.4-8.2); UREA NITROGEN, BLOOD 16.0 mg/dL (7-18)
[2024-09-15 08:00] VITALS: BP 103/73; TEMP 97.7; O2SAT 94
[2024-09-15 08:28] LABS: LDL 74 mg/dL (0-99)
[2024-09-15] MEDS: OLANZAPINE 10 MG TABLET PO SCH (08:41)
[2024-09-15] MEDS: PAROXETINE HCL 10 MG TABLET PO SCH (08:42)
[2024-09-15] MEDS: BISACODYL SUPP (10 MG) 10 MG/SUPP.RECT SUPP.RECT RC SCH (08:42)
[2024-09-15] MEDS ORDERED: BENZTROPINE MESYLATE (1 MG) 1 MG TABLET PO SCH (09:00)
[2024-09-15] MEDS: LORAZEPAM 1 MG TABLET PO PRN (12:13)
[2024-09-15 16:02] VITALS: BP 110/68; TEMP 97.7; O2SAT 96
[2024-09-15] MEDS: AMMONIUM LACTATE 227 GM BOTTLE TP SCH (17:02)
[2024-09-15 20:32] VITALS: BP 109/75; TEMP 97.9; O2SAT 94
[2024-09-15 22:52] VITALS: BP 109/75; TEMP 97.9; O2SAT 94
[2024-09-16 08:00] VITALS: BP 124/91; TEMP 97.8; O2SAT 99
[2024-09-16 16:00] VITALS: BP 113/76; TEMP 97.5; O2SAT 98
[2024-09-16 20:11] VITALS: BP 114/80; TEMP 97.6; O2SAT 100
[2024-09-17 08:00] VITALS: BP 108/68; TEMP 97.8; O2SAT 97
[2024-09-17 16:00] VITALS: BP 115/71; TEMP 98.8; O2SAT 95
[2024-09-17 20:12] VITALS: BP 110/90; TEMP 98.8; O2SAT 96
[2024-09-18 08:00] VITALS: BP 113/82; TEMP 97.8; O2SAT 98
[2024-09-18] MEDS: PAROXETINE HCL 10 MG TABLET PO SCH (09:00)
[2024-09-18 16:00] VITALS: BP 112/75; TEMP 98.4; O2SAT 96
[2024-09-18 20:00] VITALS: BP 97/62; TEMP 97.9; O2SAT 96
[2024-09-18 20:14] VITALS: BP 114/81; TEMP 98.4; O2SAT 95
[2024-09-19 08:00] VITALS: BP 149/94; TEMP 97.8; O2SAT 97
[2024-09-19 16:04] VITALS: BP 109/81; TEMP 97.7; O2SAT 99
[2024-09-19 19:58] VITALS: BP 122/82; TEMP 97.7; O2SAT 98
[2024-09-20] MEDS: ACETAMINOPHEN 325 MG TABLET PO PRN (05:37)
[2024-09-20 08:00] VITALS: BP 120/79; TEMP 97.8; O2SAT 96
== END 2024-09-20 13:15 | DRG 885 ==
LOC: ER 16:40 → GPS 09-14 00:57
PROVIDERS: ADMIT Registered Nurse; ATTEND Nurse Practitioner Acute Care
DX: F25.9 Schizoaffective disorder, unspecified (principal); F03.93 Unspecified dementia, unspecified severity, with mood disturbance; F03.918 Unspecified dementia, unspecified severity, with other behavioral disturbance; F03.92 Unspecified dementia, unspecified severity, with psychotic disturbance; F29 Unspecified psychosis not due to a substance or known physiological condition; F41.9 Anxiety disorder, unspecified; Z20.822 Contact with and (suspected) exposure to COVID-19; Z91.148 Patient's other noncompliance with medication regimen for other reason; Z79.899 Other long term (current) drug therapy; J44.9 Chronic obstructive pulmonary disease, unspecified; K59.00 Constipation, unspecified; F31.9 Bipolar disorder, unspecified; R10.13 Epigastric pain; Z88.8 Allergy status to other drugs, medicaments and biological substances; Z91.011 Allergy to milk products; Z79.51 Long term (current) use of inhaled steroids; G47.00 Insomnia, unspecified; L60.3 Nail dystrophy; S90.221A Contusion of right lesser toe(s) with damage to nail, initial encounter; X58.XXXA Exposure to other specified factors, initial encounter; Y92.9 Unspecified place or not applicable; L84 Corns and callosities
CPT/HCPCS: 36415; 80048-TC; 80053-TC; 80061-TC; 80076-TC; 81001; 82962-TC; 83735-TC; 84484-TC; 85025-TC; 87081-TC; G0480